=== PATIENT | male | born 1935 | race Caucasian/White ===

== ENCOUNTER → 2019-03-09 19:26 | Outpatient (CLI) | payer MEDICARE, SELFPAY ==
[2019-03-09 20:14] LABS: Basophils % 0.3 % (0.1-2.0); Eosinophils # 0.1 K/mm3 (0.0-0.4); Eosinophils % 1.2 % (0.1-12.0); Hematocrit 26.5 % (42.0-52.0); Hemoglobin 8.2 g/dL (14.1-18.0); Lymphocytes # 0.8 K/mm3 (0.7-4.5); Lymphocytes % 10.2 % (10-50); Mean Corpuscular HGB Conc 30.9 g/dL (31.8-35.4); Mean Corpuscular Hemoglobin 28.4 pg (27.0-31.2); Monocytes # 0.4 K/mm3 (0.1-1.0); Monocytes % 4.8 % (1.7-9.3); Neutrophils # 6.5 K/mm3 (1.8-7.8); Neutrophils % 83.6 % (37.0-80.0); Platelet Count 363 K/mm3 (142-424); Red Blood Count 2.88 M/mm3 (4.60-6.20); Red Cell Distribution Width 17.5 % (11.5-17.5); White Blood Count 7.7 K/mm3 (4.8-10.8)
[2019-03-09 20:39] LABS: Alanine Aminotransferase 24 U/L (12-78); Albumin Level 1.9 gm/dL (3.4-5.0); Albumin/Globulin Ratio 0.6 (1.1-1.8); Alkaline Phosphatase 84 U/L (46-116); Anion Gap 15.5 mEq/L (5-15); Aspartate Amino Transferase 13 U/L (15-37); Bilirubin,Total 0.5 mg/dL (0.2-1.0); Blood Urea Nitrogen 29 mg/dL (7-18); Carbon Dioxide 22 mmol/L (21.0-32.0); Chloride 104 mmol/L (98-107); Creatinine,Serum 1.88 mg/dL (0.70-1.30); Estimated Glomerular Filt Rate 34 ml/min (>60); GFR (African American) 42 ML/MIN (>60); Globulin 3.1 gm/dl (1.3-3.2); Glucose 109 mg/dL (74-106); Potassium 4.5 mmoL/L (3.5-5.1); Sodium 137 mmol/L (136-145)
[2019-03-09 21:10] LABS: Erythrocyte Sedimentation Rate 58 mm/hr (0-20)
== END ==
PROVIDERS: Visit Provider Internal Medicine Infectious Disease
DX: Z51.81 Encounter for therapeutic drug level monitoring (principal); Z79.2 Long term (current) use of antibiotics
CPT/HCPCS: 80053; 85025; 85651

== ENCOUNTER → 2019-06-01 17:05 | Outpatient (CLI) | payer MEDICARE, SELFPAY ==
[2019-06-01 17:25] LABS: Basophils % 0.8 % (0.1-2.0); Eosinophils # 0.2 K/mm3 (0.0-0.4); Hematocrit 33.3 % (42.0-52.0); Hemoglobin 10.2 g/dL (14.1-18.0); Lymphocytes # 1.2 K/mm3 (0.7-4.5); Lymphocytes % 25.8 % (10-50); Mean Corpuscular HGB Conc 30.8 g/dL (31.8-35.4); Mean Corpuscular Hemoglobin 30.7 pg (27.0-31.2); Mean Corpuscular Volume 99.6 fl (80-94); Mean Platelet Volume 7.4 fl (7.4-10.4); Monocytes # 0.3 K/mm3 (0.1-1.0); Monocytes % 6.9 % (1.7-9.3); Neutrophils # 2.9 K/mm3 (1.8-7.8); Neutrophils % 62.5 % (37.0-80.0); Platelet Count 194 K/mm3 (142-424); Red Blood Count 3.34 M/mm3 (4.60-6.20); Red Cell Distribution Width 18.5 % (11.5-17.5); White Blood Count 4.6 K/mm3 (4.8-10.8)
[2019-06-01 18:13] LABS: Alanine Aminotransferase 14 U/L (12-78); Albumin Level 2.6 gm/dL (3.4-5.0); Albumin/Globulin Ratio 0.7 (1.1-1.8); Alkaline Phosphatase 129 U/L (46-116); Anion Gap 8.9 mEq/L (5-15); Aspartate Amino Transferase 10 U/L (15-37); Bilirubin,Total 0.4 mg/dL (0.2-1.0); Blood Urea Nitrogen 21 mg/dL (7-18); Calcium 9.5 mg/dL (8.5-10.1); Carbon Dioxide 30 mmol/L (21.0-32.0); Chloride 103 mmol/L (98-107); Creatinine,Serum 1.57 mg/dL (0.70-1.30); Estimated Glomerular Filt Rate 42 ml/min (>60); GFR (African American) 51 ML/MIN (>60); Glucose 86 mg/dL (74-106); Potassium 4.9 mmoL/L (3.5-5.1); Sodium 137 mmol/L (136-145); Total Protein,Serum 6.6 gm/dL (6.4-8.2)
[2019-06-01 18:16] LABS: Erythrocyte Sedimentation Rate 53 mm/hr (0-20)
== END ==
PROVIDERS: Visit Provider Internal Medicine Infectious Disease
DX: Z51.81 Encounter for therapeutic drug level monitoring (principal)
CPT/HCPCS: 80053; 85025; 85651